=== PATIENT | male | born 1985 | race American Indian/Alaskan Native ===

== ENCOUNTER 2018-11-19 16:52 | Emergency (ER) | payer BC ==
--- NOTE | 2018-11-19 17:17 | Emergency Department Report ---
Blank Doc - Documentation Documentation: 33 y o male presents with cc of blood in urine ua ACC eval
[2018-11-19] MEDS ORDERED: ROCEPHIN IM ONE (19:37)
[2018-11-19] MEDS ORDERED: XYLOCAINE 1% MPF 5 mL INFILTRATI ONE (19:37)
[2018-11-19] MEDS ORDERED: ZITHROMAX PO ONE (19:37)
--- NOTE | 2018-11-19 19:52 | Emergency Department Report ---
ED Male HPI - General Chief complaint: Urogenital-Male Stated complaint: BLOOD IN URINE Time Seen by Provider: 11/19/18 17:15 Source: patient Mode of arrival: Ambulatory Limitations: No Limitations - History of Present Illness Initial comments: Patient is a 33-year-old male with no past medical history who presents to the ED, the acute onset persistent dysuria, penile discharge and hematuria for the last 2 days. Patient denies testicular pain, urinary frequency and urgency, dizziness, fever, chills, nausea, vomiting, abdominal p ain, low back pain or traumatic injury. Patient admits to having unprotected sexual intercourse. MD Complaint: penile discharge, dysuria, other (hematuria) -: Sudden, days(s) (2) Location: penis Radiation: none Severity: moderate Severity scale (0 -10): 6 Quality: aching, burning Consistency: constant Improves with: none Worsens with: urination, movement discharge, blood in urine, dysuria. denies: swelling, mass, rash, urinary retention, fever, nausea/vomiting, incontinence - Related Data Sexually active: Yes (unprotected) Previous Rx's Medication Instructions Recorded Last Taken Type Phenazopyridine [Pyridium] 100 mg PO Q8H PRN #15 tablet 11/19/18 Unknown Rx Sulfamethoxazole/Trimethoprim 1 each PO BID #20 tablet 11/19/18 Unknown Rx [Bactrim DS TAB] Allergies Allergy/AdvReac Type Severity Reaction Status Date / Time No Known Allergies Allergy Verified 11/19/18 16:56 ED Review of Systems ROS: Stated complaint: BLOOD IN URINE Other details as noted in HPI Comment: All other systems reviewed and negative Constitutional: no symptoms reported. denies: chills, fever Eyes: denies: eye pain, eye discharge, vision change ENT: denies: ear pain, throat pain Respiratory: denies: cough, shortness of breath, wheezing Cardiovascular: denies: chest pain, palpitations Endocrine: no symptoms reported Gastrointestinal: denies: abdominal pain, nausea, diarrhea Genitourinary: urgency, dysuria, frequency, hematuria, discharge. denies: testicular pain, testicular mass Musculoskeletal: denies: back pain, joint swelling, arthralgia Skin: denies: rash, lesions Neurological: denies: headache, weakness, paresthesias Psychiatric: denies: anxiety, depression Hematological/Lymphatic: denies: easy bleeding, easy bruising ED Past Medical Hx - Past Medical History Previous Medical History?: No - Surgical History Past Surgical History?: No - Social History Smoking Status: Current Every Day Smoker Substance Use Type: Marijuana - Medications Home Medications: Home Medications Medication Instructions Recorded Confirmed Last Taken Type Phenazopyridine [Pyridium] 100 mg PO Q8H PRN #15 tablet 11/19/18 Unknown Rx Sulfamethoxazole/Trimethoprim 1 each PO BID #20 tablet 11/19/18 Unknown Rx [Bactrim DS TAB] ED Physical Exam - General Limitations: No Limitations General appearance: alert, in no apparent distress - Head Head exam: Present: atraumatic, normocephalic, normal inspection - Eye Eye exam: Present: normal appearance, PERRL, EOMI. Absent: scleral icterus, conjunctival injection, nystagmus, periorbital swelling, periorbital tenderness Pupils: Present: normal accommodation - ENT ENT exam: Present: normal exam, normal orophraynx, mucous membranes moist, TM's normal bilaterally, normal external ear exam - Neck Neck exam: Present: normal inspection, full ROM. Absent: tenderness, meningismus, lymphadenopathy, thyromegaly - Respiratory Respiratory exam: Present: normal lung sounds bilaterally. Absent: respiratory distress, wheezes, rhonchi, chest wall tenderness, accessory muscle use, decreased breath sounds, prolonged expiratory - Cardiovascular Cardiovascular Exam: Present: regular rate, normal rhythm, normal heart sounds. Absent: systolic murmur, diastolic murmur, rubs, gallop - GI/Abdominal GI/Abdominal exam: Present: soft, normal bowel sounds. Absent: tenderness, rebound, hyperactive bowel sounds, hypoactive bowel sounds, organomegaly - Rectal Rectal exam: Present: deferred - exam: Present: normal inspection. Absent: testicular tenderness, scrotal swelling, vertical testicular lie External exam: Present: normal external exam - Extremities Exam Extremities exam: Present: normal inspection, full ROM, normal capillary refill - Back Exam Back exam: Present: normal inspection - Neurological Exam Neurological exam: Present: alert, oriented X3, CN II-XII intact, normal gait, reflexes normal - Psychiatric Psychiatric exam: Present: normal affect, normal mood - Skin Skin exam: Present: warm, dry, intact, normal color. Absent: rash ED Course Vital Signs 11/19/18 16:58 Temperature 97.9 F Pulse Rate 75 Respiratory 18 Rate Blood Pressure 132/87 O2 Sat by Pulse 98 Oximetry - Reevaluation(s) Reevaluation #1: 11/20/18 05:46 Patient is alert and oriented 3 and is not in distress with normal vital signs. Urinalysis was ordered and patient empirically treated for sexually transmitted diseases chlamydia and gonorrhea in the ED. Patient will discharged home on medications and advised to follow up with [facility] for further evaluation and other STD tests. Patient advised to return to the ED immediately if symptoms get worse. 11/20/18 05:46 ED Medical Decision Making - Medical Decision Making Patient is alert and oriented 3 and is not in distress with normal vital signs. Urinalysis was ordered and patient empirically treated for sexually transmitted diseases chlamydia and gonorrhea in the ED. Patient will discharged home on medications and advised to follow up with [facility] for further evaluation and other STD tests. Patient advised to return to the ED immediately if symptoms get worse. - Differential Diagnosis Dysuria, Hematuria, STD, Acute UTI Critical care attestation.: If time is entered above; I have spent that time in minutes in the direct care of this critically ill patient, excluding procedure time. ED Disposition Clinical Impression: Urethritis, STD (sexually transmitted disease), Acute urinary tract infection Disposition: - TO HOME OR SELFCARE Is pt being admited?: No Does the pt Need Aspirin: No Condition: Stable Additional Instructions: Take medications with food, drink plenty of fluids and follow up with your primary care physician or [facility] for further tests or other STDs. Return to the ED immediately if symptoms get worse. Prescriptions: Sulfamethoxazole/Trimethoprim [Bactrim DS TAB] 1 each PO BID #20 tablet Phenazopyridine [Pyridium] 100 mg PO Q8H PRN #15 tablet PRN Reason: Pain , Severe (7-10) Referrals: [facility] [Outside] - 3-5 Days Forms: STI Treatment and Prevention Time of Disposition: 19:52 Print Language: FRENCH
[2018-11-20 04:23] LABS: Bilirubin,Urine NEG (Negative); Blood,Urine NEG (Negative); Color,Urine Yellow (Yellow); Mucus,Urine FEW /HPF; Protein,Urine <15 mg/dL mg/dL (Negative); Urobilinogen,Urine < 2.0 mg/dL (<2.0)
[2018-11-20 07:31] VITALS: BP 120/81
== END 2018-11-19 20:28 | disposition home or self-care (01) ==
LOC: ED 16:52
DX: N39.0 Urinary tract infection, site not specified (principal); A64 Unspecified sexually transmitted disease; F17.200 Nicotine dependence, unspecified, uncomplicated; F12.90 Cannabis use, unspecified, uncomplicated
CPT/HCPCS: 81001; 87591; 96372; 99283

== ENCOUNTER 2018-12-02 18:48 | Emergency (ER) | payer OTHER, BC ==
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
[2018-12-02 19:46] VITALS: BP 114/70
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
[2018-12-02] MEDS ORDERED: PERCOCET 5/325 PO STA (22:54)
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
== END 2018-12-02 23:38 | disposition home or self-care (01) ==
LOC: ED 18:48
DX: M54.5 Low back pain (principal); Z79.899 Other long term (current) drug therapy; V49.49XA Driver injured in collision with other motor vehicles in traffic accident, initial encounter; Y93.89 Activity, other specified; Y92.488 Other paved roadways as the place of occurrence of the external cause; Y99.8 Other external cause status
CPT/HCPCS: 72040; 72100; 99283